=== PATIENT | female | born 1960 | race Caucasian/White ===

== ENCOUNTER 2017-04-16 22:28 | Emergency (ER) | payer MEDICAID ==
[2017-04-16 23:05] VITALS: BP 136/86; PULSE 73; RESP 18; TEMP 98.1; O2SAT 99
[2017-04-16] MEDS ORDERED: Naproxen 550 mg Tab PO STA (23:44)
--- NOTE | 2017-04-16 23:49 | C.PDOC ---
History Of Present Illness 56 y/o female presents to ED with complaints of dental pain for the last 2-4 days. Notes taking Ibuprofen at home with no relief. Otherwise, denies any fever , chills, swelling, difficulty breathing/swallowing, or any other associated symptoms at this time. Time Seen by Provider: 04/16/17 23:31 Chief Complaint (Nursing): Dental Pain History Per: Patient History/Exam Limitations: no limitations Onset/Duration Of Symptoms: Days (4) Current Symptoms Are (Timing): Still Present Quality: Positive for: Aching, "Pain" Recent travel outside of the [place]: No Additional History Per: Patient Past Medical History Reviewed: Historical Data, Nursing Documentation, Vital Signs Vital Signs: Last Vital Signs Temp 98.1 F 04/16/17 23:02 Pulse 73 04/16/17 23:02 Resp 18 04/16/17 23:02 BP 136/86 04/16/17 23:02 Pulse Ox 99 04/17/17 01:05 Family History: States: Unknown Family Hx - Social History Hx Alcohol Use: No Hx Substance Use: No - Immunization History Hx Tetanus Toxoid Vaccination: No Hx Influenza Vaccination: No Hx Pneumococcal Vaccination: No Review Of Systems Except As Marked, All Systems Reviewed And Found Negative. Constitutional: Negative for: Fever, Chills ENT: Positive for: Mouth Pain. Negative for: Mouth Swelling Respiratory: Negative for: Shortness of Breath Physical Exam - Physical Exam Appears: Non-toxic, No Acute Distress Skin: Normal Color, Warm, Dry Head: Atraumatic, Normacephalic Eye(s): bilateral: Normal Inspection, EOMI Nose: Normal Oral Mucosa: Moist Tongue: Normal Appearing Lips: Normal Appearing Teeth: Caries (left mandibular), Tender To Palpation (left mandibular), No Loose Gingiva: Normal Appearing, No Erythema, No Swelling, No Tender, No Abscess Throat: Normal, No Erythema, No Exudate, No Drooling Neck: Normal ROM, Supple Chest: Symmetrical Cardiovascular: Rhythm Regular Respiratory: Normal Breath Sounds, No Accessory Muscle Use Neurological/Psych: Oriented x3, Normal Speech ED Course And Treatment O2 Sat by Pulse Oximetry: 99 Pulse Ox Interpretation: Normal Progress Note: Patient was given Naproxen and Amoxicillin. Patient is being discharged home, and is instructed to f/u with dentist in 1-2 days. Disposition - Disposition Referrals: [facility]. [facility] [Outside] Disposition: HOME/ ROUTINE Disposition Time: 23:45 Condition: STABLE Additional Instructions: Follow up with dentist in 1-2 days. Return to ER if symptoms persist or worsen. 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 - Scribe Statement The provider has reviewed the documentation as recorded by the Scribe Candice Palomino All medical record entries made by the Padmini were at my direction and personally dictated by me. I have reviewed the chart and agree that the record accurately reflects my personal performance of the history, physical exam, medical decision making, and the department course for this patient. I have also personally directed, reviewed, and agree with the discharge instructions and disposition.
[2017-04-17] MEDS ORDERED: Naproxen 550 mg Tab PO ONE
== END 2017-04-17 00:06 | disposition home or self-care (01) ==
LOC: C.ER 22:28 → SUPCPDRO 22:28 → EDBD 22:28 → C.ER 04-17 00:06
DX: K08.89 Other specified disorders of teeth and supporting structures (principal)